=== PATIENT | female | born 1965 | race Caucasian/White ===

== ENCOUNTER 2018-08-11 20:37 | Emergency (ER) | payer BC, OTHER ==
[2018-08-11] MEDS ORDERED: FUROSEMIDE 40 MG/4 ML VIAL ONE (21:30)
[2018-08-11 21:53] LABS: Absolute Lymphocytes (CBC) 2.2 K/uL (0.7-4.9); Absolute Monocytes 0.4 K/uL (0.1-1.3); Absolute Neutrophil 7.6 K/uL (1.8-8.0); Basophils % 0.8 % (0-1.3); Eosinophils % 0.2 % (0-4.4); Hematocrit 36.5 % (36.0-45.0); Lymphocytes % 21.8 % (15.3-44.8); MPV 9.3 fL (7.6-11.3); Monocytes % 3.7 % (3.3-12.3)
[2018-08-11 21:54] LABS: Protime INR 1.03
[2018-08-11 22:16] LABS: Urine Bacteria >50 /HPF (<20); Urine RBC <5 /HPF (NONE SEEN)
[2018-08-11 22:17] LABS: Urine Culture Reflex Order NOT NEEDED
[2018-08-11 22:48] LABS: ALT/SGPT 20 U/L (12-78); AST/SGOT 15 U/L (15-37); Albumin 2.8 g/dL (3.4-5.0); Alkaline Phosphatase 188 U/L (45-117); BUN Blood Urea Nitrogen 32 mg/dL (7-18); Bicarbonate 38 mmol/L (21-32); Bilirubin Direct 0.1 mg/dL (0-0.2); Bilirubin Total 0.3 mg/dL (0.2-1.0); Glucose Level 111 mg/dL (74-106); NT PRO-BNP 279 pg/mL (<125); Potassium 3.8 mmol/L (3.5-5.1); Protein, Total 7.1 g/dL (6.4-8.2); Sodium Level 139 mmol/L (136-145); Troponin (Emerg Dept Use Only) < 0.02 ng/mL (0.0-0.045)
[2018-08-11] MEDS ORDERED: KETOROLAC 30 MG/ML INJ ONE (22:59)
--- NOTE | 2018-08-11 23:39 | ER ---
Nurse's Notes [facility] Name: Linda Jenkins Age: 53 yrs Sex: Female : 1965 Arrival Date: 08/11/2018 Time: 20:50 Bed 3 Private MD: Diagnosis: Acute diastolic (congestive) heart failure Presentation: 08/11 20:52 Presenting complaint: EMS states: "She is here with fluid overload with generalized jd3 pain.". Transition of care: Julio Leahy. Onset of symptoms was August 11, 2018. Risk Assessment: Do you want to hurt yourself or someone else? Patient reports no desire to harm self or others. Initial Sepsis Screen: Does the patient meet any 2 criteria? No. Patient's initial sepsis screen is negative. Does the patient have a suspected source of infection? No. Patient's initial sepsis screen is negative. Care prior to arrival: None. 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 N/A - Hysterectomy jd3 Historical: - Allergies: 21:10 Zofran; jd3 - Home Meds: 21:10 Insulin: Humulin 50/50 Sub-Q [Active]; Vitamin C Oral [Active]; dilaudid every 12 hours jd3 for Pain Control [Active]; spironolactone Oral [Active]; Protonix Oral [Active]; sucralfate 1 gram Oral tab [Active]; gabapentin 300 mg oral cap [Active]; Robaxin 500 mg Oral tab [Active]; Tessalon Perles Oral [Active]; Xopenex Inhl [Active]; Symbicort inhalation inhalation [Active]; ipratropium bromide inhalation inhalation [Active]; Pulmicort Inhl [Active]; fentanyl 100 mcg/hr Topical pt72 [Active]; Prednisone Oral [Active]; Metoprolol Tartrate Oral [Active]; loratadine oral oral [Active]; diltiazem Oral [Active]; Nystatin Oral [Active]; Lactulose Oral [Active]; levothyroxine oral [Active]; aspirin 81 mg Oral chew [Active]; Bisacodyl Rectal [Active]; Lantus Sub-Q [Active]; Bumetanide Oral [Active]; Colace oral oral [Active]; Senokot Oral [Active]; - PMHx: 21:10 COPD; CHF; GERD; Hypothyroidism; Diabetes - IDDM; Chronic pain; jd3 - PSHx: 21:10 Gastric Bypass; Hysterectomy; Cholecystectomy; back; Bladder suspension; jd3 - Immunization history:: Adult Immunizations up to date. - Social history:: Smoking status: Patient/guardian denies using tobacco, but has a distant history of tobacco abuse, Patient/guardian denies using alcohol, street drugs, The patient lives with family. - Ebola Screening: : Patient negative for fever greater than or equal to 101.5 degrees Fahrenheit, and additional compatible Ebola Virus Disease symptoms. - Family history:: not pertinent. - Hospitalizations: : No recent hospitalization is reported. Screenin:15 Abuse screen: Denies threats or abuse. Nutritional screening: No deficits noted. jd3 Tuberculosis screening: No symptoms or risk factors identified. Fall Risk Secondary diagnosis (15 points) impaired mobility, Ambulatory Aid- Crutches/Cane/Walker (15 pts). Gait- Impaired (20 pts.). Mental Status- Oriented to own ability (0 pts). Total Guy Fall Scale indicates High Risk Score (45 or more points). Fall prevention measures have been instituted. Side Rails Up X 2 Placed Close to Nursing Station Frequent Obs/Assessments Occuring. Assessment: 21:12 General: Appears uncomfortable, Behavior is cooperative, appropriate for age, anxious. jd3 Pain: Complains of pain in generalized Quality of pain is described as aching, tender. Neuro: Level of Consciousness is awake, alert, obeys commands, Oriented to person, place, time, situation, Appropriate for age. Cardiovascular: Heart tones S1 S2 present Capillary refill < 3 seconds Patient's skin is warm and dry. Rhythm is regular. Respiratory: Airway is patent Respiratory effort is even, unlabored, Respiratory pattern is regular, symmetrical, Breath sounds with wheezes bilaterally. GI: Abdomen is round obese, Patient currently denies nausea, vomiting. : No signs and/or symptoms were reported regarding the genitourinary system. EENT: No signs and/or symptoms were reported regarding the EENT system. Derm: Skin is intact, Skin is dry, Skin is pale, Skin temperature is warm. Musculoskeletal: Range of motion: limited in milagros legs Swelling present in abdomen, right leg and left leg. 21:55 Reassessment: No changes from previously documented assessment. Patient and/or family jd3 updated on plan of care and expected duration. Pain level reassessed. Patient is alert, oriented x 3, equal unlabored respirations, skin warm/dry/pink. 22:23 Reassessment: Patient and/or family updated on plan of care and expected duration. Pain jd3 level reassessed. Patient is alert, oriented x 3, equal unlabored respirations, skin warm/dry/pink. pt resting with eyes closed, even and unlabored respirations. 23:52 Reassessment: Patient and/or family updated on plan of care and expected duration. Pain jd3 level reassessed. Patient is alert, oriented x 3, equal unlabored respirations, skin warm/dry/pink. 08/12 00:00 Reassessment: report given to Jyoti at [facility] for pt discharge. jd3 00:04 Reassessment: Jyoti reported that [facility] will arrange transfer. jd3 01:44 Reassessment: Patient appears in no apparent distress at this time. Patient and/or jd3 family updated on plan of care and expected duration. Pain level reassessed. Patient is alert, oriented x 3, equal unlabored respirations, skin warm/dry/pink. report given to [facility]. 11:45 Reassessment: Dr. Santizo reports nodules seen on chest xray, recommends f/u CT Chest hb in 2-3 weeks. Message left with father Zia Steele to have pt call ED. 11:55 Reassessment: Spoke to Linda, directed to call [facility]. hb 12:05 Reassessment: Millie FLOREZ at [facility] notified. hb Vital Signs: 08/11 21:11 BP 117 / 71; Pulse 72; Resp 18 S; Temp 98.7(O); Pulse Ox 98% on 3 lpm NC; Weight 140.61 jd3 kg (R); Height 5 ft. 7 in. (170.18 cm) (R); Pain 9/10; 21:56 BP 97 / 56; Pulse 90; Resp 17 S; Pulse Ox 100% on 3 lpm NC; jd3 22:26 BP 100 / 63; Pulse 69; Resp 14 S; Pulse Ox 98% on 3 lpm NC; jd3 23:53 BP 93 / 57; Pulse 84; Resp 15 S; Pulse Ox 95% on 3 lpm NC; jd3 08/12 02:16 BP 101 / 57; Pulse 83; Resp 17 S; Pulse Ox 96% on 3 lpm NC; jd3 08/11 21:11 Body Mass Index 48.55 (140.61 kg, 170.18 cm) jd3 ED Course: 08/11 20:50 Patient arrived in ED. ds1 20:51 Brock Delarosa RN is Primary Nurse. jd3 20:55 Triage completed. jd3 20:59 Benson Rachel MD is Attending Physician. ma2 21:12 Arm band placed on. EKG completed in triage. Results shown to MD. jd3 21:16 Patient has correct armband on for positive identification. Bed in low position. Call jd3 light in reach. Side rails up X2. 21:17 Inserted saline lock: 22 gauge in right antecubital area, using aseptic technique. jb5 Blood collected. 21:26 Rodriguez cath inserted, using sterile technique, 16 Fr., by me, balloon inflated, urine jb5 specimen collected. 22:16 X-ray completed. Portable x-ray completed in exam room. Patient tolerated procedure ls3 well. 23:16 Chest Single View In Process Unspecified. EDMS 08/12 02:12 No provider procedures requiring assistance completed. IV discontinued, intact, jd3 bleeding controlled, No redness/swelling at site. Pressure dressing applied. Administered Medications: 08/11 21:34 Not Given (Other Intervention Used): Lasix 80 mg IVP once jd3 21:36 Drug: Lasix 40 mg Route: IVP; Site: right antecubital; jd3 22:30 Follow up: Response: No adverse reaction jd3 22:54 Drug: TORadol 30 mg Route: IVP; Site: right antecubital; jd3 23:51 Follow up: Response: No adverse reaction jd3 23:51 Drug: Dilaudid 1 mg Route: IVP; Site: right antecubital; jd3 08/12 02:13 Follow up: Response: No adverse reaction jd3 02:10 Drug: morphine 2 mg Route: IVP; Site: right antecubital; jd3 02:15 Follow up: Response: Medication administered at discharge. jd3 Outcome: 08/11 23:39 Discharge ordered by . krystle 08/12 02:12 Discharged to [facility]. Report called to Jyoti street Condition: stable Instructed on discharge instructions, Demonstrated understanding of instructions. 02:17 Patient left the ED. jd3 Addendum: 08/15/2018 11:44 Addendum: Culture Results: Positive urine culture. Phone call Attempt #1 left voicemail.a a5 08/16/2018 08:59 Addendum: Culture Results: Phone call Attempt #2 left voicemail at 0844. a a5 Signatures: Dispatcher [employer] EDRI Zoie Torres ds1 Bridget Mathews, RN RN aa5 Lakisha Buckner RN RN Vicki Puente jb5 Brock Delarosa RN RN Benson Castillo MD MD ma2 Kiya Herndon ls3 Corrections: (The following items were deleted from the chart) 08/11 23:53 21:55 Reassessment: Patient appears in no apparent distress at this time. No changes jd3 from previously documented assessment. Patient and/or family updated on plan of care and expected duration. Pain level reassessed. Patient is alert, oriented x 3, equal unlabored respirations, skin warm/dry/pink. jd3 23:53 22:23 Reassessment: Patient appears in no apparent distress at this time. Patient jd3 and/or family updated on plan of care and expected duration. Pain level reassessed. Patient is alert, oriented x 3, equal unlabored respirations, skin warm/dry/pink. pt resting with eyes closed, even and unlabored respirations jd3
--- NOTE | 2018-08-11 23:40 | EDPHYS ---
Physician Documentation [facility] Name: Linda Jenkins Age: 53 yrs Sex: Female : 1965 Arrival Date: 08/11/2018 Time: 20:50 Bed 3 Private MD: ED Physician Benson Rachel HPI: 08/11 21:16 This 53 yrs old Female presents to ER via EMS with complaints of generalized ma2 edema . 21:16 Onset: The symptoms/episode began/occurred gradually, 5 day(s) ago. Severity of ma2 symptoms: At their worst the symptoms were severe in the emergency department the symptoms are unchanged. The patient has not experienced similar symptoms in the past. 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 N/A - Hysterectomy jd3 Historical: - Allergies: 21:10 Zofran; jd3 - Home Meds: 21:10 Insulin: Humulin 50/50 Sub-Q [Active]; Vitamin C Oral [Active]; dilaudid every 12 hours jd3 for Pain Control [Active]; spironolactone Oral [Active]; Protonix Oral [Active]; sucralfate 1 gram Oral tab [Active]; gabapentin 300 mg oral cap [Active]; Robaxin 500 mg Oral tab [Active]; Tessalon Perles Oral [Active]; Xopenex Inhl [Active]; Symbicort inhalation inhalation [Active]; ipratropium bromide inhalation inhalation [Active]; Pulmicort Inhl [Active]; fentanyl 100 mcg/hr Topical pt72 [Active]; Prednisone Oral [Active]; Metoprolol Tartrate Oral [Active]; loratadine oral oral [Active]; diltiazem Oral [Active]; Nystatin Oral [Active]; Lactulose Oral [Active]; levothyroxine oral [Active]; aspirin 81 mg Oral chew [Active]; Bisacodyl Rectal [Active]; Lantus Sub-Q [Active]; Bumetanide Oral [Active]; Colace oral oral [Active]; Senokot Oral [Active]; - PMHx: 21:10 COPD; CHF; GERD; Hypothyroidism; Diabetes - IDDM; Chronic pain; jd3 - PSHx: 21:10 Gastric Bypass; Hysterectomy; Cholecystectomy; back; Bladder suspension; jd3 - Immunization history:: Adult Immunizations up to date. - Social history:: Smoking status: Patient/guardian denies using tobacco, but has a distant history of tobacco abuse, Patient/guardian denies using alcohol, street drugs, The patient lives with family. - Ebola Screening: : Patient negative for fever greater than or equal to 101.5 degrees Fahrenheit, and additional compatible Ebola Virus Disease symptoms. - Family history:: not pertinent. - Hospitalizations: : No recent hospitalization is reported. ROS: 21:16 Constitutional: Negative for fever, chills, and weight loss. ma2 21:16 MS/extremity: Positive for swelling, Negative for injury or acute deformity, bite, contusion, decreased range of motion, deformity, ecchymosis, laceration, pain, tingling, warmth. 21:16 All other systems are negative. Exam: 21:16 Constitutional: This is a well developed, well nourished patient who is awake, alert, ma2 and in no acute distress. Chest/axilla: Normal chest wall appearance and motion. Nontender with no deformity. No lesions are appreciated. Cardiovascular: Regular rate and rhythm with a normal S1 and S2. No gallops, murmurs, or rubs. Normal PMI, no JVD. No pulse deficits. Respiratory: Lungs have equal breath sounds bilaterally, clear to auscultation and percussion. No rales, rhonchi or wheezes noted. No increased work of breathing, no retractions or nasal flaring. Abdomen/GI: Soft, non-tender, with normal bowel sounds. No distension or tympany. No guarding or rebound. No evidence of tenderness throughout. 21:16 Musculoskeletal/extremity: Extremities: ROM: no acute changes, intact in all extremities, Circulation is intact in all extremities. Sensation intact. Compartment Syndrome exam of affected extremity: Calves: are non-tender, have equal circumference, generalized 4+ pitting edema large equal bilat. Vital Signs: 21:11 BP 117 / 71; Pulse 72; Resp 18 S; Temp 98.7(O); Pulse Ox 98% on 3 lpm NC; Weight 140.61 jd3 kg (R); Height 5 ft. 7 in. (170.18 cm) (R); Pain 9/10; 21:56 BP 97 / 56; Pulse 90; Resp 17 S; Pulse Ox 100% on 3 lpm NC; jd3 22:26 BP 100 / 63; Pulse 69; Resp 14 S; Pulse Ox 98% on 3 lpm NC; d3 23:53 BP 93 / 57; Pulse 84; Resp 15 S; Pulse Ox 95% on 3 lpm NC; [facility] 08/12 02:16 BP 101 / 57; Pulse 83; Resp 17 S; Pulse Ox 96% on 3 lpm NC; [facility] 08/11 21:11 Body Mass Index 48.55 (140.61 kg, 170.18 cm) [facility] MDM: 08/11 20:59 Patient medically screened. [facility] 21:16 Differential Diagnosis generalized edema ARF vs CHF exacerbation vs pulm edema . [facility] 23:37 Data reviewed: vital signs, nurses notes. Counseling: I had a detailed discussion with [facility] the patient and/or guardian regarding: the historical points, exam findings, and any diagnostic results supporting the discharge/admit diagnosis, the presence of at least one elevated blood pressure reading (>120/80) during this emergency department visit, the need for outpatient follow up. Response to treatment: the patient's symptoms have markedly improved after treatment. ED course: patient has mild CHF, given lasix IV she has no indication for admission, will increase her lasix and she will see her measurement and sensing technician in 2 days . 23:45 ED course: will increase bumex to 4 mg tid instead of bid, until she talk with her [facility] measurement and sensing technician . 08/11 21:41 Order name: Urine Dipstick--Ancillary (enter results) ag4 08/11 22:09 Order name: CBC with Automated Diff; Complete Time: 23:20 EDPA 08/11 22:09 Order name: Protime (+INR); Complete Time: 23:20 EDMS 08/11 22:17 Order name: Urine Microscopic Only; Complete Time: 23:20 EDMS 08/11 22:49 Order name: Basic Metabolic Panel; Complete Time: 23:20 EDMS 08/11 22:49 Order name: Liver (Hepatic) Function; Complete Time: 23:20 EDMS 08/11 22:49 Order name: Troponin (Emerg Dept Use Only); Complete Time: 23:20 EDMS 08/11 22:49 Order name: NT PRO-BNP; Complete Time: 23:20 EDMS 08/11 22:49 Order name: Magnesium; Complete Time: 23:20 EDMS 08/11 23:16 Order name: Chest Single View EDMS 08/11 23:53 Order name: Basic Metabolic Panel EDMS 08/11 23:53 Order name: Liver (Hepatic) Function EDMS 08/11 23:53 Order name: Troponin (Emerg Dept Use Only) EDMS 08/11 23:53 Order name: NT PRO-BNP EDMS 08/11 23:53 Order name: Magnesium EDMS 08/11 23:53 Order name: CBC with Automated Diff EDMS 08/11 23:53 Order name: Protime (+INR) EDMS 08/11 23:53 Order name: Urine Microscopic Only EDMS 08/11 23:53 Order name: Urine Culture EDMS 08/11 21:06 Order name: EKG; Complete Time: 21:07 ma2 08/11 21:06 Order name: Cardiac monitoring; Complete Time: 21:09 ma2 08/11 21:06 Order name: EKG - Nurse/Tech; Complete Time: 21:09 ma2 08/11 21:06 Order name: IV Saline Lock; Complete Time: 21:35 ma2 08/11 21:06 Order name: Labs collected and sent; Complete Time: 21:58 ma2 08/11 21:06 Order name: O2 Per Protocol; Complete Time: 21:17 ma2 08/11 21:06 Order name: O2 Sat Monitoring; Complete Time: 21:17 ma2 08/11 21:37 Order name: Rodriguez; Complete Time: 21:58 jb5 Administered Medications: 21:34 Not Given (Other Intervention Used): Lasix 80 mg IVP once jd3 21:36 Drug: Lasix 40 mg Route: IVP; Site: right antecubital; jd3 22:30 Follow up: Response: No adverse reaction jd3 22:54 Drug: TORadol 30 mg Route: IVP; Site: right antecubital; jd3 23:51 Follow up: Response: No adverse reaction jd3 23:51 Drug: Dilaudid 1 mg Route: IVP; Site: right antecubital; jd3 08/12 02:13 Follow up: Response: No adverse reaction jd3 02:10 Drug: morphine 2 mg Route: IVP; Site: right antecubital; jd3 02:15 Follow up: Response: Medication administered at discharge. jd3 Disposition: 08/11/18 23:39 Discharged to Home. Impression: Acute diastolic (congestive) heart failure. - Condition is Stable. - Discharge Instructions: Heart Failure. - Medication Reconciliation Form, Thank You Letter, Antibiotic Education, Prescription Opioid Use form. - Follow up: Private Physician; When: Tomorrow; Reason: Continuance of care. - Notes: take extra dose of bumex in the afternoon total of 4mg TID, untill you see your measurement and sensing technician Signatures: Dispatcher [employer] EDPA Vicki Puente jb5 Brock Delarosa RN RN jd3 Benson Rachel MD MD ma2 Corrections: (The following items were deleted from the chart) 08/11 23:46 21:07 Chest Single View+RAD.RAD.BRZ ordered. EDPA EDMS 23:57 21:07 BASIC METABOLIC PANEL+C.LAB.BRZ ordered. EDPA EDMS 23:57 21:07 CBC+H.LAB.BRZ ordered. EDPA EDMS 23:58 21:07 HEPATIC FUNCTION+C.LAB.BRZ ordered. EDPA EDMS 23:58 21:07 MAGNESIUM+C.LAB.BRZ ordered. EDPA EDMS 23:58 21:07 PROBNP+C.LAB.BRZ ordered. EDPA EDMS 23:58 21:07 PROTIME (+INR)+COAG.LAB.BRZ ordered. EDPA EDMS 23:58 21:07 TROPONIN (EMERG DEPT USE ONLY)+C.LAB.BRZ ordered. EDPA EDMS 23:59 21:38 Urine Culture+BA.LAB.BRZ ordered. EDPA EDMS 23:59 21:38 UA MICROSCOPIC+U.LAB.BRZ ordered. EDPA EDPA 08/12 02:17 08/11 23:39 08/11/2018 23:39 Discharged to Home. Impression: Acute diastolic jd3 (congestive) heart failure. Condition is Stable. Forms are Medication Reconciliation Form, Thank You Letter, Antibiotic Education, Prescription Opioid Use. Follow up: Private Physician; When: Tomorrow; Reason: Continuance of care. ma2
[2018-08-11] MEDS ORDERED: HYDROMORPHONE HCL 1 MG/ML INJ ONE (23:54)
[2018-08-11 23:57] LABS: Urine Blood TRACE (NEG); Urine Glucose NEGATIVE (NEG); Urine Protein NEGATIVE (NEG); Urine Specific Gravity 1.015 (1.005-1.030)
[2018-08-12] MEDS ORDERED: MORPHINE 4 MG/ML SYR ONE (02:08)
[2018-08-12 02:34] VITALS: TEMP 98.7
[2018-08-12 02:39] VITALS: BP 101/57; O2SAT 96
--- NOTE | 2018-08-12 08:15 | RAD REPORT ---
EXAM DESCRIPTION: RAD - Chest Single View - 08/11/2018 10:17 pm CLINICAL HISTORY: PAIN Chest pain. COMPARISON: CHEST PA AND LAT 2 VIEW dated 04/22/2012; CHEST PA AND LAT 2 VIEW dated 04/08/2005; THORA X WO CONTRAST dated 04/22/2012 FINDINGS: Portable technique limits examination quality. Several vague ~1 cm pulmonary nodules are present in both lungs. These appear new since the comparati ve study. The lungs are underinflated with vascular prominence seen. The heart is normal in size. No displaced fractures.CT chest followup is recommended. Findings discussed with ER physician Dr. Sanchez 8:10 a.m. 08/12/2018 by telephone.
--- NOTE | 2018-08-12 13:42 | EKG ---
Test Date: 2018-08-11 Test Time: 20:55:21 Gauge Inspector: [place] MEASUREMENT RESULTS: Intervals: Rate: 75 PA: 150 QRSD: 90 QT: 426 QTc: 475 [place]: P: 45 PA: 150 QRS: 52 T: 62 INTERPRETIVE STATEMENTS: Normal sinus rhythm Low voltage QRS Borderline ECG Compared to ECG 07/30/2011 12:52:22 Low QRS voltage now present Electronically Signed On 08-12-18 13:41:35 INTERNAL AFFAIRS INVESTIGATOR by Stanislav Recinos
== END 2018-08-12 02:17 | disposition home or self-care (01) ==
LOC: ER 20:37
DX: I50.31 Acute diastolic (congestive) heart failure (principal); E11.9 Type 2 diabetes mellitus without complications; E03.9 Hypothyroidism, unspecified; J44.9 Chronic obstructive pulmonary disease, unspecified; Z79.82 Long term (current) use of aspirin; Z79.4 Long term (current) use of insulin; Z88.8 Allergy status to other drugs, medicaments and biological substances
CPT/HCPCS: 36415; 51702; 71045; 80048; 80076; 81003; 81015; 83735; 83880; 84484; 85025; 85610; 87077; 87086; 87088; 87186; 93005; 96374; 96375; 99284; J1170; J1940